=== PATIENT | female | born 1935 | race Caucasian/White ===

== ENCOUNTER → 2017-10-12 | Outpatient (CLI) | payer MEDICARE, OTHER ==
--- NOTE | 2017-10-12 09:40 | RADIOLOGY REPORT (SQ) ---
EXAM DESCRIPTION: ROSALINA SWALLOW COMPLETED DATE/TIME: 10/12/2017 9:22 am REASON FOR STUDY: DYSPHAGIA (R13.10) R13.10 DYSPHAGIA, UNSPECIFIED COMPARISON: None. TECHNIQUE: Videofluoroscopic swallowing examination was performed in conjunction with speech patholo gy. Videofluoroscopic imaging was obtained and reviewed and these are the findings: RADIATION DOSE: 1 minutes 52 seconds of fluoroscopy was used. 1 images saved to PACS. LIMITATIONS: None FINDINGS: The patient was brought into the fluoro room and placed upright on a modified barium swall ow chair. The patient was then given multiple consistencies mixed with barium to swallow under live fluoroscopic video guidance. According to the Speech Pathologist there was flash laryngeal penetrati on without aspiration on thin liquids only. Post swallow residual contrast within the vallecular. IMPRESSION: FLASH LARYNGEAL PENETRATION WITH THIN LIQUIDS. NO ASPIRATION SEEN.PLEASE SEE SPEECH PAT HOLOGIST REPORT FOR OTHER FINDINGS AND RECOMMENDATIONS. COMMENT: Quality ID [id number]: Final reports for procedures using fluoroscopy that document radiation exp osure indices, or exposure time and number of fluorographic images (if radiation exposure indices are not available) TECHNICAL DOCUMENTATION: JOB ID: [id number] [employer]- All Rights Reserved Reading location - IP/workstation name: [email or web address] [id number]
--- NOTE | 2017-10-12 11:19 | ST Modified Barium Swallow ---
Recommendation - Recommendations Recommendations: Regualr diet with thin liquids. Small bites and sips. Alternate bites and sips. Hard swallow and second swallow to clear globus sensation. Medical Diagnoses - Medical Diagnoses Medical Diagnosis Description & ICD-10 Code(s): Dysphagia (R13.10) Other Medical Diagnoses/Co-Morbidities: Patient reports her swallowing issues first started in the . 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 She also reports multiple other surgeries, hypertension, and reflux. ST Modified Barium Swallow - General Date: 10/12/17 Referring Physician: Maura Risks/Precautions: Falls, Aspiration Date of Onset: 01/20/05 Reason for Referral: dysphagia - History History obtained from: Patient - Functional Status Prior Functional Status: INDEPENDENT: ADL - Subjective Patient/caregiver goal(s): safe swallow Cognitive-Linguistic Function: Functional Speech Intelligibility: WNL Current Nutritional Means: PO Current PO diet: Regular - with thin liquids Current symptoms: Coughing, c/o Globus sensation - Objective Assessment: Upright, Left Lateral - Food Trials Used Food trials used: Thin liquids, Pureed, Regular The patient: Was Able to Self Feed - Oral-Motor Skills Dentition: Full Velo-pharyngeal function: Unremarkable Laryngeal Function: clear voicing - Assessment Oral prep: Normal Labial closure: Adequate Leakage: None Mastication: Adequate - Patient reports that she chews her food well to avoid choking Lingual Movement: Normal Oral stage: Normal for this Procedure - Pharyngeal Stage Decreased laryngeal elevation: Yes Reduced Velopharyngeal Closure: no Reduced pressure generation: Yes reduced tongue-based retraction: Yes Pre-swallow pooling in valleculae: None Pre-Swallow pooling in pyriforms: None Reduced Thyro-Hyoid approximation: Yes Reduced epiglottic excursion: Yes Reduced pharyngeal peristalsis/contraction: Yes Multiple Swallows with: Effective Post-swallow residulas vallecular: Moderate - with puree - cleared with secondary swallow and liquid wash Post-Swallow residuals in pyriforms: Moderate - with puree - cleared with secondary swallow and liquid wash Reduced Cricopharyngeal opening: No - Esophageal Stage Cricopharyngeal Function: Normal Upper Esophageal Transit: Normal Cervical Osteophytes noted: No - Fall Risk Assessment Medications/Conditions that increase fall risks include: Antidepressants, sedatives, anti-arrhythmic, diuretic, benzodiazipenes, neuroleptics. BP regulation problems, cardiac problems, balance or gait deficits, neurological problems. Is patient considered at risk for falls: age appropriate Fall Risk Actions Taken: No action needed - Behavioral Observations During evaluation process patient: was pleasant, was cooperative, able to answer questions, provided medical history - Treatment / Educational Needs: Treatment/Education Needs: Treatment consisted of patient education on the role of the Speech Pathologist. Patient's plan of care and golas were communicated as well as scheduling and attendance policies. Recommendations for initial home program were shared. Patient demonstrated understanding and verbalized agreement. - Impression/Summary Laryngeal Penetration: Yes - with thin liquid, Flash, Silent, Cleared, during swallow Consistency: Thin Tracheal Aspiration: no Effective compensatory strategies: throat clear & reswallow, hard swallow Ineffective compensatory strategies: chin tuck - per patient report Patient presents with: Pharyngeal stage dysph., Mild-Moderate Risk of Aspiration: Mild Risk of nutritional compromise: WNL - Recommendations NPO: no Solid diet recommendations: Regular Liquid Diet Modification: Thin Strict aspiration precautions: Yes Pt/Family education and followup with MD: Yes Dysphagia therapy with MARKETING GRAPHICS SPECIALIST: no Reflux Precautions: Taught to Patient Recommended techniques: Fully Upright During Meal, Med Crushed in Applesauce, Dry Swallow After Bite, Small Bites and Sips, Alternate Bites/Sips Supervision: Independent Information, Precautions and Recommendations: Patient (Written), Patient (Verbal ) - Plan of Care Summary: Speech therapy treatment not indicated at this time as patient's swallow is safe with compensatory strategies, but encouraged patient to ask for referral to speech therapy should her dysphagia worsen. Strategies to optimize patient understanding include:: ongoing assessment of educational needs, implementation of educational strategies, and re-education. - - -: Thank you for the opportunity to work with this patient and his/her family. Should you have any questions about this patient's plan or progress, I can be reached at [phone]. Charge G Code? - - -: Yes ST F.L. Impairment Category - Rationale Based On Rationale Based On: Clin Find., Obj Measures - Swallowing Current G8996: CI 1-19% Impaired Goal G8997: CI 1-19% Impaired Discharge G8998: CI 1-19% Impaired
== END ==
LOC: RAD 07:59
PROVIDERS: ATTEND Otolaryngology
DX: R13.10 Dysphagia, unspecified (principal)
CPT/HCPCS: 74230; 92611; G8996; G8997; G8998

== ENCOUNTER 2017-12-29 07:02 | Day surgery (SDC) | payer MEDICARE, OTHER ==
--- NOTE | 2017-12-26 13:39 | EKG REPORT ---
SEVERITY:- NORMAL ECG - SINUS RHYTHM : Confirmed by: Indigo Aguillon MD 26-Dec-2017 13:38:37
[~2017-12-29 07:02] MED LIST: LACTATED RINGERS 1000 ML IV PRN; LIDOCAINE 0.5% INJ-PF (5 MG/ML) 50 ML SDV SUBCUT PRN
[2017-12-29] MEDS ORDERED: LIDOCAINE 2% INJ-PF (20 MG/ML) 10 ML AMPUL ONE (09:06)
[2017-12-29] MEDS ORDERED: PROPOFOL INJ 200 MG/20 ML VIAL IV ONE (09:06)
[2017-12-29] MEDS ORDERED: FENTANYL CITRATE INJ/PF 100 MCG/2 ML AMPUL IV PRN ×3 (09:55)
[2017-12-29] MEDS ORDERED: MEPERIDINE HCL/PF INJ 25 MG/1 ML DISP.SYRIN IV PRN (09:55)
[2017-12-29] MEDS ORDERED: PROMETHAZINE HCL INJ 25 MG/1 ML VIAL IV PRN ×2 (09:55)
[2017-12-29] MEDS ORDERED: ONDANSETRON HCL INJ/PF 4 MG/2 ML SDV IV PRN (09:55)
[2017-12-29] MEDS ORDERED: DIPHENHYDRAMINE HCL 50 MG/ML VIAL IV PRN (09:55)
[2017-12-29] MEDS ORDERED: DEXTROSE 5%-1/2 NORMAL SALINE 1,000 ML IV PRN (10:50)
[2017-12-29 11:13] VITALS: BP 150/61
[2017-12-29] MEDS ORDERED: ACETAMINOPHEN 325 MG TABLET PO PRN (11:15)
[2017-12-29] MEDS ORDERED: SIMETHICONE 80 MG TAB.CHEW PO PRN (11:15)
[2017-12-29] MEDS ORDERED: PROMETHAZINE HCL INJ 25 MG/1 ML VIAL INJ PRN (11:15)
--- NOTE | 2017-12-29 11:58 | Operative Report ---
Operative Report DATE OF SURGERY: 12/29/17 Operative Report: The risks, benefits and alternatives of the procedure including risks of bleeding, perforation requiring surgery are explained to the patient in detail and informed consent is obtained. Patient is placed in a left lateral decubital position. Timeout was called. Propofol medication is administered. A rectal examination is done which did not reveal any masses, tears or fissures. An Olympus videoscope was inserted into the patient's rectum. The scope was then carefully advanced all the way to the cecum. The cecum was identified by the usual anatomical landmarks including ileocecal valve as well as the appendiceal office. Photodocumentation is obtained. The scope was then sequentially pulled back via the rest segments of the colon including the ascending colon, hepatic flexure, transverse colon, splenic flexure, descending colon and finally into the rectosigmoid portions of the colon. Retroflexion maneuvers performed. The risks benefits and alternatives of the procedure explained to the patient in detail and informed consent is obtained.A GIF Olympus video scope was inserted into the patient's mouth and hypopharynx, the esophagus is identified intubated and insufflated, the scope was then advanced through the esophagus stomach and duodenum, retroflexion maneuver is done, the esophagus stomach and first and second portions of the duodenum examined PREOPERATIVE DIAGNOSIS: Globus sensation. Colorectal cancer screening POSTOPERATIVE DIAGNOSIS: 2 colon polyps attempted removal via snare polypectomy but no tissue retrieved. Internal hemorrhoids. Mild right-sided colon inflammation status post biopsy. Gastritis status post biopsy rule out Helicobacter pylori. No esophageal lesion noted OPERATION: Colonoscopy with snare polypectomy. Colonoscopy with biopsy. EGD with biopsy SURGEON: CARTER SOLOMON ANESTHESIA: LMAC TISSUE REMOVED OR ALTERED: As noted above. COMPLICATIONS: None. ESTIMATED BLOOD LOSS: None. INTRAOPERATIVE FINDINGS: As noted above. PROCEDURE: Patient tolerated the procedure well. No immediate postprocedure complications are noted. Patient discharged in good condition. Discharge date 12/29/2017. Discharge diet: Regular. Discharge activity: Regular. 2-3 week follow-up to discuss findings. Patient is instructed call the office or proceed to the emergency room should there be any further problems or questions. We will wait on pathology. 5 year surveillance colonoscopy.
== END 2017-12-29 11:15 | disposition home or self-care (01) ==
LOC: OROUT 07:02
PROVIDERS: ATTEND Internal Medicine Gastroenterology
DX: K52.9 Noninfective gastroenteritis and colitis, unspecified (principal); K64.8 Other hemorrhoids; K29.50 Unspecified chronic gastritis without bleeding; K21.9 Gastro-esophageal reflux disease without esophagitis; Z80.0 Family history of malignant neoplasm of digestive organs; I10 Essential (primary) hypertension; M19.90 Unspecified osteoarthritis, unspecified site; E07.9 Disorder of thyroid, unspecified; E78.00 Pure hypercholesterolemia, unspecified; B00.9 Herpesviral infection, unspecified; Z79.899 Other long term (current) drug therapy; Z79.82 Long term (current) use of aspirin; Z88.8 Allergy status to other drugs, medicaments and biological substances; Z88.5 Allergy status to narcotic agent
CPT/HCPCS: 43239; 45380; 45388; 93010; 93005; 36415; 84132; 88305 ×2; J2704; J3490; 813

== ENCOUNTER → 2018-01-03 | Outpatient (CLI) | payer MEDICARE, OTHER ==
--- NOTE | 2018-01-03 12:44 | RADIOLOGY REPORT (SQ) ---
EXAM DESCRIPTION: U/S THYROID/SFT TISS HD NECK COMPLETED DATE/TIME: 01/03/2018 12:26 pm REASON FOR STUDY: OTHER SPECIFIED DISORDERS OF THYROID E07.89 OTHER SPECIFIED DISORDERS OF THYROID COMPARISON: None. TECHNIQUE: Dynamic and static littlejohn-scale images acquired of the thyroid gland. Selected additional c olor/power Doppler images recorded. All images stored to PACS. LIMITATIONS: None. FINDINGS: RIGHT LOBE: Small, 2.3 x 0.9 x 0.9 cm slightly echogenic. No cystic or solid masses. LEFT LOBE: Small, 1.6 x 0.7 x 0.7 cm slightly echogenic. No cystic or solid masses. ISTHMUS: 3 mm. Slightly echogenic. No cystic or solid masses. OTHER: There is a 10 x 6 x 5 mm lymph node in the left side of the neck. IMPRESSION: Atrophic thyroid gland. Small lymph node in the left side of the neck. TECHNICAL DOCUMENTATION: JOB ID: [id number] [employer]- All Rights Reserved Reading location - IP/workstation name: [email or web address]
== END ==
LOC: RAD 10:54
PROVIDERS: ATTEND Otolaryngology
DX: E07.89 Other specified disorders of thyroid (principal)
CPT/HCPCS: 76536

== ENCOUNTER → 2019-02-19 | Outpatient (CLI) | payer MEDICARE, OTHER ==
[2019-02-19 15:03] LABS: ABSOLUTE BASOPHILS # (AUTO) 0.1 10^3/uL (0.0-0.2); ABSOLUTE EOSINOPHILS # (AUTO) 0.1 10^3/uL (0.0-0.6); ABSOLUTE LYMPHOCYTES (AUTO) 2.6 10^3/uL (0.5-4.7); ABSOLUTE MONOCYTES (AUTO) 0.6 10^3/uL (0.1-1.4); ABSOLUTE NEUT (AUTO) 4.8 10^3/uL (1.7-8.2); BASOPHILS % (AUTO) 1.1 % (0-2); EOSINOPHILS % (AUTO) 1.2 % (0-6); HEMATOCRIT 40.2 % (36.0-47.0); HEMOGLOBIN 13.8 g/dL (12.0-15.5); LYMPHOCYTES % (AUTO) 31.5 % (13-45); MEAN CORPUSCULAR HEMOGLOBIN 30.4 pg (27.0-33.4); MEAN CORPUSCULAR HGB CONC 34.2 g/dL (32.0-36.0); MEAN CORPUSCULAR VOLUME 89 fl (80-97); MONOCYTES % (AUTO) 7.3 % (3-13); PLATELET COUNT 151 10^3/uL (150-450); RED BLOOD COUNT 4.53 10^6/uL (3.72-5.28); RED CELL DISTRIBUTION WIDTH 13.1 % (11.5-14.0); SEGMENTED NEUTROPHILS % (AUTO) 58.9 % (42-78); TOTAL CELLS COUNTED % (AUTO) 100 %; WHITE BLOOD COUNT 8.2 10^3/uL (4.0-10.5)
== END ==
LOC: OD 14:17
PROVIDERS: ATTEND Specialist
DX: I10 Essential (primary) hypertension (principal); R73.03 Prediabetes; I35.1 Nonrheumatic aortic (valve) insufficiency; I34.0 Nonrheumatic mitral (valve) insufficiency; R07.9 Chest pain, unspecified; R06.02 Shortness of breath; E78.49 Other hyperlipidemia; R06.00 Dyspnea, unspecified; I48.0 Paroxysmal atrial fibrillation; E78.5 Hyperlipidemia, unspecified; Z79.899 Other long term (current) drug therapy
CPT/HCPCS: 36415; 85025